=== PATIENT | male | born 1980 ===

== ENCOUNTER 2019-07-03 14:09 | Emergency (ER) | payer MEDICAID, OTHER ==
[~2019-07-03] VITALS: Ht 172.7 cm; Wt 76.0 kg
[2019-07-03] MEDS ORDERED: TETanus/Pertussis (Acell)/Diphther VAC/PF (Tdap-Adult) 0.5ml syringe IMVAC ONE (16:25)
[2019-07-03] MEDS ORDERED: LIDOcaine 1% W/epiNEPHrine 1:200,000 10ml vial IJ ONE (16:25)
[2019-07-03 18:17] VITALS: BP 139/79
== END 2019-07-03 18:10 | disposition home or self-care (01) ==
LOC: ER 14:11
DX: S81.011A Laceration without foreign body, right knee, initial encounter (principal); V29.88XA Motorcycle rider (driver) (passenger) injured in other specified transport accidents, initial encounter; Y93.89 Activity, other specified; Y92.828 Other wilderness area as the place of occurrence of the external cause; Y99.8 Other external cause status
CPT/HCPCS: 12002; 73564; 90471; 90715; 99283